=== PATIENT | female | born 1960 | race Caucasian/White ===

== ENCOUNTER 2024-12-28 07:20 | Inpatient (IN) | payer MEDICARE, OTHER ==
[~2024-12-28] VITALS: Ht 157.5 cm; Wt 63.5 kg
[2024-12-28] MEDS ORDERED: MECLIZINE HCL 12.5 MG TABLET ONE (07:48)
[2024-12-28] MEDS: IV NS 0.9% 1,000 ML BAG IV ONE (07:53)
[2024-12-28] MEDS: MECLIZINE HCL 12.5 MG TABLET PO ONE (07:54)
[2024-12-28 07:55] LABS: BASOPHILS % (AUTO) 0.4 % (0.0-2.0); EOSINOPHILS # (AUTO) 0.1 K/uL (0.0-0.7); EOSINOPHILS % (AUTO) 0.8 % (0.0-6.0); HEMATOCRIT 39 % (33-45); LYMPHOCYTES # (AUTO) 2.2 K/uL (0.8-4.8); MEAN CORPUSCULAR HEMOGLOBIN 29 PG (26.0-33.0); MEAN CORPUSCULAR HGB CONC 33 g/dl (31.0-36.0); MEAN CORPUSCULAR VOLUME 88 fL (82-100); MONOCYTES # (AUTO) 0.9 K/uL (0.1-1.30); MONOCYTES % (AUTO) 10.5 % (2.0-12.0); NEUTROPHILS # (AUTO) 5.5 K/uL (1.8-8.9); NEUTROPHILS % (AUTO) 63.3 % (43.0-81.0); PLATELET COUNT (AUTO) 267 K/uL (150-450); RED BLOOD CELL COUNT(AUTO) 4.47 MIL/uL (4.0-5.2); RED CELL DISTRIBUTION WIDTH 15.6 % (11.5-15.0); WHITE BLOOD COUNT (AUTO) 8.8 K/uL (4.3-11.0)
[2024-12-28] MEDS ORDERED: ACETAMINOPHEN ES 500 MG TABLET ONE (08:04)
[2024-12-28 08:06] LABS: CALCIUM, SERUM 9.9 mg/dL (8.5-10.1); CARBON DIOXIDE 23 mmol/L (21-32); CHLORIDE 103 mmol/L (98-107); GLUCOSE 137 mg/dL (74-106); SODIUM SERUM 138 mmol/L (136-145); UREA NITROGEN, BLOOD 31 mg/dL (7-18)
[2024-12-28] MEDS: ACETAMINOPHEN ES 500 MG TABLET PO ONE (08:06)
[2024-12-28] MEDS ORDERED: IV NS 0.9% 250 ML IV ONE (08:28)
[2024-12-28] MEDS ORDERED: CT SWABBABLE VALVE TRANS SET 1 EA INFUS.SET MC ONE (08:28)
[2024-12-28] MEDS ORDERED: IOHEXOL-350 100 ML VIAL IV ONE (08:28)
[2024-12-28] MEDS ORDERED: ASPIRIN EC 325 MG TABLET.DR PO ONE (09:38)
[2024-12-28] MEDS: ASPIRIN EC 325 MG TABLET.DR PO ONE (09:44)
[2024-12-28] MEDS ORDERED: MAG HYDROX/AL HYDROX/SIMETH 30 ML UDC PO PRN (10:30)
[2024-12-28] MEDS ORDERED: MAGNESIUM HYDROXIDE 30 ML UDC PO PRN (10:30)
[2024-12-28] MEDS ORDERED: ONDANSETRON HCL/PF 4 MG/2 ML VIAL IVP PRN (10:30)
[2024-12-28] MEDS: ASPIRIN 325 MG TABLET PO SCH (10:30)
[2024-12-28] MEDS ORDERED: Z GUARD REMEDY 4 OZ OINT TP PRN (10:30)
[2024-12-28 10:38] VITALS: BP 114/62; TEMP 97.9; O2SAT 99
[2024-12-28] MEDS ORDERED: VALS1TAB8 PO (10:45)
[2024-12-28] MEDS ORDERED: CLON0.1T PO (10:45)
[2024-12-28] MEDS ORDERED: DONE10TA44 PO (10:45)
[2024-12-28] MEDS ORDERED: FERR325T24 PO (10:45)
[2024-12-28] MEDS ORDERED: ASPI-1420 PO (10:45)
[2024-12-28] MEDS ORDERED: NIFE60TA73 PO (10:45)
[2024-12-28] MEDS ORDERED: SERT50TA12 PO (10:45)
[2024-12-28] MEDS ORDERED: HYDR-4077 PO (10:45)
[2024-12-28] MEDS: ACETAMINOPHEN 325 MG TABLET PO PRN (12:03)
[2024-12-28 16:00] VITALS: BP 107/62; TEMP 208.2; O2SAT 98
[2024-12-28 20:00] VITALS: BP 113/63; TEMP 98.2; O2SAT 98
[2024-12-29] VITALS: BP 113/60; TEMP 98.2; O2SAT 99
[2024-12-29 04:00] VITALS: BP 111/66; TEMP 98.2; O2SAT 99
[2024-12-29 06:39] LABS: BASOPHILS % (AUTO) 0.4 % (0.0-2.0); EOSINOPHILS # (AUTO) 0.1 K/uL (0.0-0.7); EOSINOPHILS % (AUTO) 1.2 % (0.0-6.0); HEMATOCRIT 38 % (33-45); HEMOGLOBIN 12.6 g/dL (11.5-14.8); LYMPHOCYTES # (AUTO) 1.7 K/uL (0.8-4.8); LYMPHOCYTES % (AUTO) 28.6 % (20.0-44.0); MEAN CORPUSCULAR HEMOGLOBIN 29 PG (26.0-33.0); MEAN CORPUSCULAR HGB CONC 33 g/dl (31.0-36.0); MEAN CORPUSCULAR VOLUME 88 fL (82-100); MONOCYTES # (AUTO) 0.7 K/uL (0.1-1.30); MONOCYTES % (AUTO) 11.3 % (2.0-12.0); NEUTROPHILS # (AUTO) 3.5 K/uL (1.8-8.9); NEUTROPHILS % (AUTO) 58.5 % (43.0-81.0); PLATELET COUNT (AUTO) 264 K/uL (150-450); RED BLOOD CELL COUNT(AUTO) 4.34 MIL/uL (4.0-5.2); RED CELL DISTRIBUTION WIDTH 15.6 % (11.5-15.0)
[2024-12-29 07:23] LABS: CALCIUM, SERUM 9.2 mg/dL (8.5-10.1); CREATININE 0.8 mg/dL (0.6-1.3); MAGNESIUM 2.2 mg/dL (1.8-2.4); PHOSPHORUS 4.5 mg/dL (2.5-4.9); POTASSIUM 4.1 mmol/L (3.5-5.1)
[2024-12-29 09:03] VITALS: BP 121/64; TEMP 98.1; O2SAT 98
[2024-12-29] MEDS ORDERED: CLONIDINE HCL 0.1 MG TABLET PO PRN (12:00)
[2024-12-29 12:04] VITALS: BP 121/62; TEMP 98.1; O2SAT 98
[2024-12-29] MEDS: METOPROLOL TARTRATE 25 MG TABLET PO SCH (13:46)
[2024-12-29 16:00] VITALS: BP 121/62; TEMP 98.1; O2SAT 98
[2024-12-29 20:00] VITALS: BP 128/70; TEMP 97.9; O2SAT 100
[2024-12-29] MEDS: DONEPEZIL 5 MG TABLET PO SCH (21:05)
[2024-12-30] VITALS: BP 147/69; TEMP 98.1; O2SAT 100
[2024-12-30] MEDS: hydrALAZINE HCL 50 MG TABLET PO PRN (00:34)
[2024-12-30 04:00] VITALS: BP 129/66; TEMP 97.7; O2SAT 100
[2024-12-30 06:49] LABS: CALCIUM, SERUM 9.4 mg/dL (8.5-10.1); CREATININE 0.5 mg/dL (0.6-1.3)
[2024-12-30 06:53] LABS: BASOPHILS % (AUTO) 0.4 % (0.0-2.0); EOSINOPHILS # (AUTO) 0.1 K/uL (0.0-0.7); EOSINOPHILS % (AUTO) 1.4 % (0.0-6.0); HEMATOCRIT 41 % (33-45); HEMOGLOBIN 13.1 g/dL (11.5-14.8); LYMPHOCYTES # (AUTO) 1.4 K/uL (0.8-4.8); LYMPHOCYTES % (AUTO) 29.2 % (20.0-44.0); MEAN CORPUSCULAR HEMOGLOBIN 29 PG (26.0-33.0); MEAN CORPUSCULAR HGB CONC 32 g/dl (31.0-36.0); MEAN CORPUSCULAR VOLUME 88 fL (82-100); MONOCYTES # (AUTO) 0.7 K/uL (0.1-1.30); MONOCYTES % (AUTO) 13.4 % (2.0-12.0); NEUTROPHILS # (AUTO) 2.7 K/uL (1.8-8.9); NEUTROPHILS % (AUTO) 55.6 % (43.0-81.0); PLATELET COUNT (AUTO) 244 K/uL (150-450); RED BLOOD CELL COUNT(AUTO) 4.59 MIL/uL (4.0-5.2); RED CELL DISTRIBUTION WIDTH 16.1 % (11.5-15.0); WHITE BLOOD COUNT (AUTO) 4.9 K/uL (4.3-11.0)
[2024-12-30 08:00] VITALS: BP 143/72; TEMP 98.1; O2SAT 100
[2024-12-30] MEDS: SERTRALINE HCL 50 MG TABLET PO SCH (08:29)
[2024-12-30] MEDS: FERROUS SULFATE (325 MG) 325 MG/TAB TABLET PO SCH (08:29)
[2024-12-30] MEDS: NIFEdipine XL (30MG) 30 MG TAB PO SCH (08:29)
[2024-12-30] MEDS ORDERED: ASPIRIN EC 81 MG TABLET.DR PO SCH ×2 (09:00)
[2024-12-30] MEDS ORDERED: IOHEXOL-350 100 ML VIAL IV ONE (10:44)
[2024-12-30] MEDS ORDERED: IV NS 0.9% 250 ML IV ONE (10:44)
[2024-12-30] MEDS: METOPROLOL TARTRATE INJ 5 MG/5 ML AMPUL IVP PRN (11:10)
[2024-12-30] MEDS ORDERED: METOPROLOL TARTRATE INJ 5 MG/5 ML AMPUL ONE (11:13)
[2024-12-30] MEDS ORDERED: NITROGLYCERIN 0.4 MG/TAB BOTTLE ONE (11:13)
[2024-12-30] MEDS: NITROGLYCERIN 0.4 MG/TAB BOTTLE SL ONE (11:18)
[2024-12-30 12:00] VITALS: BP 117/62; TEMP 97.9; O2SAT 99
[2024-12-30 16:00] VITALS: BP 99/61; TEMP 98.1; O2SAT 100
[2024-12-30 20:00] VITALS: BP 102/52; TEMP 98.1; O2SAT 99
[2024-12-31] VITALS: BP 127/66; TEMP 98.1; O2SAT 100
[2024-12-31 04:00] VITALS: BP 118/63; TEMP 98.4; O2SAT 100
[2024-12-31 08:00] VITALS: BP 103/68; TEMP 98.1; O2SAT 98
[2024-12-31 08:24] VITALS: BP 103/68
== END 2024-12-31 09:37 | disposition home health service (06) | DRG 73 ==
LOC: ER 07:23 → TELE1 09:36
PROVIDERS: ADMIT Internal Medicine; ATTEND Internal Medicine
DX: G90.89 Other disorders of autonomic nervous system (principal); I21.A1 Myocardial infarction type 2; N17.0 Acute kidney failure with tubular necrosis; I50.32 Chronic diastolic (congestive) heart failure; I11.0 Hypertensive heart disease with heart failure; D64.9 Anemia, unspecified; Z79.82 Long term (current) use of aspirin; Z79.899 Other long term (current) drug therapy; J45.909 Unspecified asthma, uncomplicated; I25.10 Atherosclerotic heart disease of native coronary artery without angina pectoris
CPT/HCPCS: 36415; 70450-TC; 71045-TC; 75574; 80048-TC; 83735-TC; 84100-TC; 84484-TC; 85025-TC; 93307-TC; G0378; J3490; J7030; J7050; J8597; Q9967